=== PATIENT | female | born 1950 | race Caucasian/White ===

== ENCOUNTER 2021-07-10 10:57 | Outpatient (CLI) | payer MEDICARE, OTHER ==
[2021-07-10 11:37] LABS: BASOPHILS % (AUTO) 0.4 %; EOSINOPHILS # (AUTO) 0.1 10^3/uL (0.0-0.7); HCT - HEMATOCRIT 38.4 % (37.0-47.0); HGB - HEMOGLOBIN 12.6 g/dL (12.0-16.0); LYMPHOCYTES # (AUTO) 1.8 10^3/uL (1.5-3.5); LYMPHOCYTES % (AUTO) 37.3 %; MEAN CORPUSCULAR HEMOGLOBIN 31.6 pg (27.0-31.0); MEAN CORPUSCULAR HGB CONC 32.8 g/dL (32.0-36.0); MEAN CORPUSCULAR VOLUME 96.2 fL (81.0-99.0); MEAN PLATELET VOLUME 10.7 fL (7.9-10.8); MONOCYTES # (AUTO) 0.4 10^3/uL (0.0-1.0); MONOCYTES % (AUTO) 7.1 %; NEUTROPHILS # (AUTO) 2.7 10^3/uL (1.5-6.6); PLT - PLATELET COUNT 202 10^3/uL (130-450); RED BLOOD COUNT 3.99 10^6/uL (4.20-5.40); RED CELL DISTRIBUTION WIDTH 13.3 % (12.0-15.0); WHITE BLOOD COUNT 4.9 x10^3/uL (4.8-10.8)
[2021-07-10 12:00] LABS: ALBUMIN 4.1 g/dL (3.2-5.5); ALBUMIN/GLOBULIN RATIO 1.3 (1.0-2.2); ALKALINE PHOSPHATASE 35 IU/L (42-121); ALT ALANINE AMINOTRANSFERASE 21 IU/L (10-60); AST ASPARTATE AMINOTRANSFERASE 25 IU/L (10-42); BILIRUBIN,TOTAL 1.2 mg/dL (0.2-1.0); BUN - BLOOD UREA NITROGEN 12 mg/dL (6-20); CALCIUM 9.2 mg/dL (8.5-10.3); CARBON DIOXIDE - CO2 28 mmol/L (21-32); CHLORIDE 103 mmol/L (101-111); CHOL/HDL RATIO 2.7 (<4.4); CHOLESTEROL 225 mg/dL; CREATININE 0.6 mg/dL (0.4-1.0); GFR - MDRD 99 (>89); GLUCOSE 96 mg/dL (70-100); HDL CHOLESTEROL 84 mg/dL; POTASSIUM 4.2 mmol/L (3.5-5.0); SODIUM 139 mmol/L (135-145); TOTAL PROTEIN 7.2 g/dL (6.7-8.2); TRIGLYCERIDES 38 mg/dL
--- NOTE | 2021-07-10 16:16 | XRAY Report ---
PROCEDURE: Lumbar Spine 2 View INDICATIONS: FUSION OF SPINE, SITE UNSPECIFIED TECHNIQUE: 2 views of the lumbar spine were acquired. COMPARISON: None. FINDINGS: Bones: 5 [id number] vertebrae are present. There is slight leftward curvature with apex at L3. Posterior fusion is present from L4 through S1, with hardware appearing intact. There is trace anter olisthesis of L4 on L5 measuring 4 mm, trace retrolisthesis of L1 on L2, L2 on L3 and L3 on L4 measur ing 5 mm, 5 mm and 5 mm respectively. Moderate foraminal narrowing is noted L5-S1, moderate to severe L3-4.. No vertebral body compression fractures. No suspicious bony lesions. Soft tissues: Overlying bowel gas pattern is normal. No suspicious soft tissue calcifications. IMPRESSION: Postsurgical and degenerative changes as above. Reviewed by: Hannah Escalante MD on 07/10/2021 4:15 PM PST Approved by: Hannah Escalante MD on 07/10/2021 4:15 PM PST Station ID: [id number]
[2021-07-11 09:21] LABS: HEPATITIS C ANTIBODY NON-REACTIVE (NON-REACTIVE)
== END 2021-07-10 10:58 | disposition home or self-care (01) ==
LOC: LAB 10:57 → DI 10:58
PROVIDERS: ATTEND Internal Medicine
DX: M47.816 Spondylosis without myelopathy or radiculopathy, lumbar region (principal); M47.817 Spondylosis without myelopathy or radiculopathy, lumbosacral region; Z11.59 Encounter for screening for other viral diseases; E03.8 Other specified hypothyroidism; Z13.6 Encounter for screening for cardiovascular disorders; Z79.899 Other long term (current) drug therapy; C44.90 Unspecified malignant neoplasm of skin, unspecified; K21.9 Gastro-esophageal reflux disease without esophagitis; Z98.1 Arthrodesis status
CPT/HCPCS: 36415; 80053; 80061; 83721; 84443; 85025; 86803

== ENCOUNTER 2021-08-23 09:44 | Outpatient (CLI) | payer MEDICARE, OTHER ==
--- NOTE | 2021-08-30 11:46 | Mammography Report ---
BILATERAL DIGITAL SCREENING MAMMOGRAM 3D/2D WITH EXAGGERATED CC: 08/23/2021 CLINICAL: Routine screening. Family history of breast cancer. No prior exams were available for comparison. The tissue of both breasts is predominantly fatty. No significant masses, calcifications, or other findings are seen in either breast. IMPRESSION: NEGATIVE There is no mammographic evidence of malignancy. A 1 year screening mammogram is recommended. This exam was interpreted at Station ID: [id number]. NOTE: For mammograms, a report in lay terms will be sent to the patient. Approximately 15% of breast malignancies will not be visualized mammographically. In the management of a palpable breast mass, a negative mammogram must not discourage biopsy of a clinically suspicious lesion. Electronically Signed By: Jose Manuel Whitten M.D., [email or web address]:08/30/2021 09:09:18 ACR BI-RADS Category 1: Negative 3341F PARENCHYMAL PATTERN: (F) - The breast(s) demonstrate(s) diffuse fatty replacement. BI-RADS CATEGORY: (1) - 1 RECOMMENDATION: (ANNUAL) - Recommend routine annual screening mammography. [id number] 1 year screening LATERALITY: (B)
== END 2021-08-23 09:45 | disposition home or self-care (01) ==
LOC: DI.S 09:44
PROVIDERS: ATTEND Internal Medicine
DX: Z12.31 Encounter for screening mammogram for malignant neoplasm of breast (principal); Z80.3 Family history of malignant neoplasm of breast

== ENCOUNTER 2021-09-22 09:36 | Outpatient (CLI) | payer MEDICARE, OTHER ==
--- NOTE | 2021-09-25 09:09 | DEXA Report ---
PROCEDURE: Dexa Spine and/or Hip INDICATIONS: POST MENOPAUSAL TECHNIQUE: Dual energy x-ray absorptiometry (DXA) was performed on a [employer] System. Regions measur ed are the AP Spine, femoral neck, and if needed forearm. COMPARISON: None. FINDINGS: L1 BMD: 1.009 L1 TScore: -1.0 L1 ZScore: Borderline osteopenia. Lumbar Spine (L1-L3 values utilized due to surgical hardware in the lower lumbar spine at L4-S1): Bone Mineral Density 1.220 g/cm/cm,T score 0.4, within normal limits. Left Hip: Bone Mineral Density 0.897 g/cm/cm,T score -0.9, lower limits of normal. Left Femoral Neck: Bone Mineral Density 0.888 g/cm/cm, T score -1.1, mild osteopenia. (T score greater or equal to -1.0: NORMAL) (T score from -1.1 to -2.4: OSTEOPENIA) (T score less than or equal to -2.5 to: OSTEOPOROSIS) Impression: 1. Mild osteopenia demonstrated in the left femoral neck. 2. Borderline osteopenia at L1. Patients with diagnosis of osteoporosis or osteopenia should have regular bone mineral density assess ment. For those eligible for Medicare, routine testing is allowed once every 2 years. Testing frequ ency can be increased for patients who have rapidly progressing disease or for those who are receivin g medical therapy to restore bone mass. Reviewed by: Rick Cox MD on 09/25/2021 9:08 AM [facility] Approved by: Rick Cox MD on 09/25/2021 9:08 AM PST Station ID: [id number]
== END 2021-09-22 09:37 | disposition home or self-care (01) ==
LOC: DI 09:36
PROVIDERS: ATTEND Internal Medicine
DX: Z78.0 Asymptomatic menopausal state (principal); M85.89 Other specified disorders of bone density and structure, multiple sites

== ENCOUNTER 2022-05-31 08:11 | Outpatient (CLI) | payer MEDICARE, OTHER | END 2022-05-31 08:12 | disposition home or self-care (01) | LOC: DI 08:11 | PROVIDERS: ATTEND Internal Medicine Cardiovascular Disease | DX: I34.0 Nonrheumatic mitral (valve) insufficiency (principal); I49.3 Ventricular premature depolarization; I51.7 Cardiomegaly; I20.8 Other forms of angina pectoris | CPT/HCPCS: 36415; 82565; 93306 ==

== ENCOUNTER 2022-05-31 09:07 | Outpatient (CLI) | payer MEDICARE, OTHER ==
[2022-05-31 09:23] LABS: CREATININE 0.6 mg/dL (0.4-1.0)
== END 2022-05-31 09:08 | disposition home or self-care (01) ==
LOC: LAB 09:07
PROVIDERS: ATTEND Internal Medicine Cardiovascular Disease
DX: I20.8 Other forms of angina pectoris (principal)
CPT/HCPCS: 36415; 82565